=== PATIENT | female | born 1950 | race Caucasian/White ===

== ENCOUNTER 2016-11-03 18:40 | Emergency (ER) | payer BC, MEDICARE ==
[2016-11-03] MEDS ORDERED: Ketorolac INJ* 60 MG/2 ML VIAL IM ONE (21:02)
[2016-11-03] MEDS ORDERED: Cyclobenzaprine TAB* 10 MG PO ONE (21:02)
--- NOTE | 2016-11-03 21:16 | UC ---
Back Pain HPI - HPI Summary HPI Summary: RIGHT BACK SPASMS. HAS HAPPENED IN PAST. NO HISTORY OF KIDNEY STONES. NO FEVER. PREVIOUS INJURY TWO YEARS AGO. TODAY TWISTED WHILE AT WORK, AND BEGAN HAVING MUSCLE SPASMS IN BACKON RIGHT SIDE. - History of Current Complaint Chief Complaint: UCBackPain Stated Complaint: BACK PAIN Time Seen by Provider: 11/03/16 20:53 Hx Obtained From: Patient Onset/Duration: Gradual Onset, Lasting Hours, Still Present Timing: Constant, Lasting Hours Severity Initially: Moderate Severity Currently: Moderate Back Pain: Is Discrete @ - RIGHT PARASPINAL MUSCLES Character: Spasmodic Aggravating: Movement, Lifting, Bending Alleviating: Rest, Position Associated Signs And Symptoms: Negative: Swelling, Redness, Numbness, Tingling, Abdominal Pain, Flank Pain, Bladder Incontinence, Bowel Incontinence - Risk Factors AAA Risk Factors: Negative TAD Risk Factors: Negative Cauda Equina Risk Factors: Negative Epidural Abscess Risk Factors: Negative - Allergies/Home Medications Allergies/Adverse Reactions: Allergies Allergy/AdvReac Type Severity Reaction Status Date / Time Iodinated Contrast Media Allergy Unknown Verified 10/31/13 08:40 [IV CONTRAST DYE] Reaction Details seafood Allergy Anaphylatic Uncoded 11/03/16 19:46 Shock Home Medications: Home Medications Buffered Aspirin TAB* [Bufferin TAB*] 650 mg PO SEE INSTRUCTIONS 11/03/16 [ History Confirmed 11/03/16] Cholecalciferol [Vitamin D] 400 unit PO DAILY 11/03/16 [History Confirmed ] Travoprost Z 0.004% OPHTH (NF) [Travatan Z 0.004% OPTH (NF)] 1 drop BOTH EYES QPM 11/03/16 [History Confirmed 11/03/16] PMH/Surg Hx/FS Hx/Imm Hx Previously Healthy: Yes Cardiovascular History Of: Reports: Hypertension - Surgical History Surgical History: Yes Surgery Procedure, Year, and Place: tonsils, tubal ligation, left thumb, bunionectomy - Family History Known Family History: Negative: Renal Disease - Social History Occupation: Employed Full-time Lives: With Family Alcohol Use: Weekly Alcohol Amount: 0-[address] Substance Use Type: None Smoking Status (MU): Never Smoked Tobacco Review of Systems Constitutional: Negative Skin: Negative Eyes: Negative ENT: Negative Respiratory: Negative Cardiovascular: Negative Gastrointestinal: Negative Genitourinary: Negative Motor: Negative Neurovascular: Negative Musculoskeletal: Arthralgia, Myalgia Neurological: Negative Psychological: Negative All Other Systems Reviewed And Are Negative: Yes Physical Exam Triage Information Reviewed: Yes Appearance: Well-Appearing, Well-Nourished, Pain Distress - MODEATE Vital Signs: Initial Vital Signs Temp 98.5 F 11/03/16 19:34 Pulse 71 11/03/16 19:34 Resp 20 11/03/16 19:34 BP 137/101 11/03/16 19:34 Vital Signs Reviewed: Yes Eye Exam: Normal ENT Exam: Normal ENT: Positive: Normal ENT inspection, Hearing grossly normal, Pharynx normal, TMs normal Dental Exam: Normal Neck exam: Normal Neck: Positive: Supple, Nontender Respiratory Exam: Normal Respiratory: Positive: Chest non-tender, Lungs clear, Normal breath sounds, No respiratory distress, No accessory muscle use Cardiovascular Exam: Normal Cardiovascular: Positive: RRR, No Murmur, Pulses Normal Abdominal Exam: Normal Abdomen Description: Positive: Nontender, No Organomegaly, Soft. Negative: CVA Tenderness (R), CVA Tenderness (L) Musculoskeletal Exam: Normal Musculoskeletal: Positive: Strength Intact Neurological Exam: Normal Psychological Exam: Normal Psychological: Positive: Normal Response To Family Skin Exam: Normal Back Pain Course/Dx - Differential Dx/Diagnosis Differential Diagnosis/HQI/PQRI: Renal Colic, Strain, Sprain Provider Diagnoses: THORACIC BACK PAIN/MUSCLE SPASMS Discharge - Discharge Plan Condition: Stable Disposition: HOME Prescriptions: Cyclobenzaprine TAB* [Flexeril 10 MG TAB*] 10 mg PO TID PRN #12 tab PRN Reason: Spasms - Back Patient Education Materials: Muscle Spasm (ED), Thoracic Back Strain (ED) Referrals: Zee Peck MD [Primary Care Provider] - Additional Instructions: PHYSICAL THERAPY REFERRAL: You have been prescribed physical therapy. Treatments may include stretching, exercise, application of heat or cold, and other modalities. After an injury, PT can reduce swelling and pain. In recovery, PT is used to restore mobility and strength. Your specific treatment goals are: ___x__ Reduction of Swelling (EGS, US, ice as needed) __x___ Pain Reduction (EGS, US, ice as needed) ___x__ TENS Pack Fitting and Instruction Wound Hydrotherapy __x___ Preservation of Mobility ___x__ Jain of Mobility ___x__ Strength Jain _x__Work or Sports Hardening This instruction sheet also serves as your PHYSICAL THERAPY REFERRAL! Please take it with you to the therapist, so he/she will be aware of your diagnosis and treatment plan. You may see the physical therapist of your choice for these treatments, but may wish to check with your insurance to be sure the provider you select is covered. It's important to see the doctor to whom you have been referred for follow up.
[2016-11-03 21:22] VITALS: BP 104/61
== END 2016-11-03 21:28 | disposition home or self-care (01) ==
LOC: UCCORT 18:40
DX: M54.6 Pain in thoracic spine (principal); M62.830 Muscle spasm of back; Z91.041 Radiographic dye allergy status; I10 Essential (primary) hypertension
CPT/HCPCS: 96372; 99212; A9270-GY; G0463; J1885

== ENCOUNTER 2017-10-28 11:12 | Day surgery (SDC) | payer BC, MEDICARE ==
[~2017-10-28 11:12] MED LIST: Acetaminophen TAB* 325 MG PO PRN; Buffered Lidocaine 0.9% SYRIN* 5 ML/SYR SYRINGE INTRADERM ONE; Cyclopentolate 1% OPTH.SOL* 2 ML BTL ONE; Ketorolac 0.5% OPHTH (NF) 0.5 % 5 ML BTL ONE; Lidocaine 1% MPF* 2 ML VIAL ONE; Lidocaine 2% EPI 1:200000 MPF*10-20 ML VIAL ONE; Neomycin/Polymy/Dex OPTH.SUSP* MAXITROL 0.1% 5 ML ONE; Phenylephrine 2.5% OPTH.SOL* 2 ML BTL ONE; Povidone Iodine 5% OPTH* 30 ML BTL ONE; Proparacaine 0.5% OPHTH.SOL* 15 ML BTL ONE; acetaZOLAMIDE TAB* 250 MG ONE
[2017-10-28] MEDS ORDERED: Midazolam* 1 MG/ML 2 ML VIAL (2 MG) ONE (13:09)
[2017-10-28 13:56] VITALS: BP 114/66
--- NOTE | 2017-10-28 21:51 | OP ---
DATE OF OPERATION: 10/28/17 - [facility] DATE OF : 50 SURGEON: Damion Driver M.D. PREOPERATIVE DIAGNOSIS: Cataract, right eye primary open glaucoma, angle glaucoma mild stage. POSTOPERATIVE DIAGNOSIS: Cataract, right eye, primary open glaucoma, angle glaucoma mild stage. OPERATIVE PROCEDURE: Extracapsular cataract extraction with intraocular lens implant and Cypass, right eye. DESCRIPTION OF PROCEDURE: The patient was brought to the operating room after being given 1/2% Alcaine with epinephrine drops in the preoperative area. The eye was prepped and draped in the usual sterile fashion. Sterile drape and eyelid speculum were placed. Again, topical 1/2% Alcaine with epinephrine was given. A paracentesis incision was made at the 9 o'clock position with the No.75 blade. Clear cornea incision 2.2 x 2.2-mm was created at the 12 o'clock position starting at the anterior limbus using the 2.2-mm keratome. The anterior chamber was irrigated with 0.4 mL of 1% non-preservative intracameral lidocaine and filled with DisCoVisc. A capsulorrhexis was completed using the cystotome and the Utrata forceps. Hydrodissection was performed with balanced salt solution. The lens nucleus was removed with the Phacoemulsification handpiece without incident. Cortex was removed with the irrigation-aspiration handpiece. The capsular bag was re-inflated using DisCoVisc and an [id number] implant was inserted with the shooter followed by a Cypass device inserted into the suprachoroidal space at the 2 o'clock position with its supervisor insecticide. The irrigation-aspiration handpiece was used to remove all residual DisCoVisc. The eye was refilled with balanced salt solution and the wound checked and found to be watertight. Topical Maxitrol drops were given. [id number]/[facility] #: [id number] [facility]ENTER[facility]anda
== END 2017-10-28 14:06 | disposition home or self-care (01) ==
LOC: OREAST 11:12
PROVIDERS: ATTEND Specialist
DX: H25.11 Age-related nuclear cataract, right eye (principal); H40.1131 Primary open-angle glaucoma, bilateral, mild stage; I10 Essential (primary) hypertension
CPT/HCPCS: A9270-GY; J2250; V2632

== ENCOUNTER 2020-12-31 05:41 | Observation (INO) ==
[2020-12-31] MEDS ORDERED: Lactated Ringers 1000 ml BAG 1,000 ML IV SCH (06:00)
[2020-12-31] MEDS ORDERED: Buffered Lidocaine 1% SYRIN 1 ml INTRADERM ONE (06:00)
[2020-12-31] MEDS ORDERED: ceFAZolin 2 GM PREMIX 2 GM/50 ML BAG ONE (06:26)
[2020-12-31] MEDS ORDERED: Ondansetron 4 mg VIAL 2 MG/ML 2 ml VIAL ONE (06:48)
[2020-12-31] MEDS ORDERED: Dexamethasone IV 4 MG/ML VIAL 1 ml VIAL ONE (06:48)
[2020-12-31] MEDS ORDERED: Propofol 10 MG/ML 20 ML BTL ONE ×4 (06:48→10:17)
[2020-12-31] MEDS ORDERED: Vancomycin 1,000 MG VIAL ONE (06:49)
[2020-12-31] MEDS ORDERED: Bupivacaine 0.25% SDV 30 ML ONE (07:02)
[2020-12-31] MEDS ORDERED: Bupivacaine 0.5% SDV PF 30ML VIAL ONE (07:02)
[2020-12-31] MEDS ORDERED: fentaNYL 100 mcg/2 ml 50 MCG/ML VIAL ONE ×2 (07:06→10:55)
[2020-12-31] MEDS ORDERED: Midazolam 5 mg/5 ml VIAL 1 mg/ml 5 ml VIAL (5 mg) ONE (07:09)
[2020-12-31] MEDS ORDERED: Lidocaine 2% PF 10 ML AMP ONE (07:14)
[2020-12-31] MEDS ORDERED: Phenylephrine 40 mcg/mL 10mL (400mcg) SYRINGE ONE (07:56)
[2020-12-31] MEDS ORDERED: Glycopyrrolate IV 0.2 MG/ML 1 ML VIAL ONE (07:57)
[2020-12-31] MEDS ORDERED: Phenylephrine IV 10 MG/ML 1 ml VIAL ONE (08:10)
[2020-12-31] MEDS ORDERED: Lidocaine 2% PF 5 ML VIAL ONE (08:30)
[2020-12-31] MEDS ORDERED: fentaNYL 100 mcg/2 ml 50 MCG/ML VIAL IV PRN (10:36)
[2020-12-31] MEDS ORDERED: Morphine 4 MG/ML VIAL (1 ml) IV PRN (10:36)
[2020-12-31] MEDS ORDERED: Ondansetron 4 mg VIAL 2 MG/ML 2 ml VIAL IV PRN ×2 (10:36→10:38)
[2020-12-31] MEDS ORDERED: Lactulose 30 ml UDC PO PRN (10:38)
[2020-12-31] MEDS ORDERED: Magnesium Hydroxide LIQ 30 ML UDC PO PRN (10:38)
[2020-12-31] MEDS ORDERED: diPHENhydraMINE 25 mg TAB PO PRN (10:38)
[2020-12-31] MEDS ORDERED: diPHENhydraMINE IV 50 MG/ML 1 ml VIAL (BENADRYL) IV PRN (10:38)
[2020-12-31] MEDS ORDERED: Morphine 2 MG/ML SYRINGE IV PRN (10:38)
[2020-12-31] MEDS ORDERED: Ondansetron ODT 4 mg TAB 4 MG TAB PO PRN (10:38)
[2020-12-31] MEDS: Lactated Ringers 1000 ml BAG 1,000 ML IV SCH ×2 (12:53→23:12)
[2020-12-31] MEDS ORDERED: Dextran 70/Hypromellose Tears Eye Drops 15 ml BTL (for Artificials Tears) BOTH EYES PRN (13:10)
[2020-12-31] MEDS: ceFAZolin 1 GM ADVAN 1 GM in NS 0.9% 50 ML 50 ML IVPB SCH ×2 (15:56→23:30)
[2020-12-31] MEDS ORDERED: Travoprost Z 0.004% OPHTH (NF) 2.5 ML BTL BOTH EYES SCH (18:00)
[2020-12-31] MEDS: Magnesium Hydroxide LIQ 30 ML UDC PO SCH (20:20)
[2020-12-31] MEDS ORDERED: PTO:Travoprost 0.004% (NF) OPHTH.SOLN BOTH EYES SCH (21:00)
[2021-01-01 05:09] LABS: Hematocrit 32 % (35-47); Hemoglobin 10.7 g/dL (12.0-16.0); Mean Platelet Volume 9.2 fL (7.4-10.4); Platelet Count 179 10^3/uL (150-450)
[2021-01-01 05:26] LABS: Calcium 8.5 mg/dL (8.6-10.3); EGFR African American 74.9 (>60); EGFR Non-African American 61.9 (>60)
[2021-01-01] MEDS: ceFAZolin 1 GM ADVAN 1 GM in NS 0.9% 50 ML 50 ML IVPB SCH (07:57)
[2021-01-01] MEDS: Magnesium Hydroxide LIQ 30 ML UDC PO SCH (08:01)
[2021-01-01] MEDS ORDERED: Vitamin THERAPEUTIC TAB PO SCH (09:00)
[2021-01-01] MEDS ORDERED: OLMESARTAN HYDROCHLOROTHIAZIDE PO SCH (09:00)
[2021-01-01 11:07] VITALS: BP 137/67
== END 2021-01-01 13:43 | disposition home or self-care (01) ==
LOC: OR 05:41 → SSU 05:41
PROVIDERS: ADMIT Orthopaedic Surgery; ATTEND Orthopaedic Surgery